=== PATIENT | male | born 1975 | race Caucasian/White ===

== ENCOUNTER 2017-02-09 09:55 | Observation (INO) | payer OTHER ==
[2017-02-08 12:15] LABS: ASPARTATE AMINO TRANSFERASE 16 U/L (15-37); BLOOD UREA NITROGEN 17 mg/dL (7-18)
[~2017-02-09] VITALS: Ht 165.1 cm; Wt 117.8 kg
[~2017-02-09 09:55] MED LIST: ASPI-496 PO; CARV12.52 PO; EPLE25TA4 PO; EZET10TA3 PO; LOSA50TA6 PO; ROSU40TA PO
[2017-02-09] MEDS ORDERED: LACTATED RINGERS 1,000 ML IV SCH (10:13)
[2017-02-09] MEDS ORDERED: MITOMYCIN 40 MG in STERILE WATER 20 ML IV ONE (13:30)
[2017-02-09] MEDS ORDERED: MIDAZOLAM 1 MG/ML, 2ML ONE (13:31)
[2017-02-09] MEDS ORDERED: FENTANYL PF 250 MCG/5ML ONE (13:33)
[2017-02-09] MEDS ORDERED: ONDANSETRON 2MG/ML, 2ML ONE (13:42)
[2017-02-09] MEDS ORDERED: PROPOFOL 10 MG/ML, 20ML ONE (13:42)
[2017-02-09] MEDS ORDERED: SUGAMMADEX 200 MG/2 ML IVPush ONE ×3 (13:42→14:19)
[2017-02-09] MEDS ORDERED: ROCURONIUM 10 MG/ML ONE (13:42)
[2017-02-09] MEDS ORDERED: MEPERIDINE/PF 25MG/0.5ML IVPush PRN (14:30)
[2017-02-09] MEDS ORDERED: ACETAMINOPHEN 325 MG TABLET PO PRN (14:30)
[2017-02-09] MEDS ORDERED: hydrALAzine 20 MG/ML, 1ML IV PRN (14:30)
[2017-02-09] MEDS ORDERED: METOPROLOL 1 MG/ML, 5ML IV PRN (14:30)
[2017-02-09] MEDS ORDERED: FENTANYL PF 100 MCG/2ML IV PRN (14:30)
[2017-02-09] MEDS ORDERED: ALBUTEROL/IPRATROPIUM 2.5MG/0.5MG, 3 ML NPPB PRN (14:30)
[2017-02-09] MEDS ORDERED: OXYcodone 5 MG/5 ML ORAL.SOL UDC PO PRN (14:30)
[2017-02-09] MEDS ORDERED: HYDROmorphone 1 MG/ML, 1ML IV PRN (14:30)
[2017-02-09] MEDS ORDERED: OXYcodone 5 MG/5 ML ORAL.SOL UDC ONE (15:13)
[2017-02-09] MEDS ORDERED: ACETAMINOPHEN 650 MG/20.3 ML UDC ONE (15:13)
[2017-02-09] MEDS ORDERED: FENTANYL PF 100 MCG/2ML ONE (15:46)
[2017-02-09 18:30] LABS: ASPARTATE AMINO TRANSFERASE 23 U/L (15-37); BLOOD UREA NITROGEN 15 mg/dL (7-18)
[2017-02-09 19:31] LABS: IS PT STATUS REG ER OR PRE ER? NO
[2017-02-09 20:33] VITALS: BP 114/66
[2017-02-09] MEDS: CARVEDILOL 12.5 MG TABLET PO SCH (23:00)
[2017-02-09] MEDS ORDERED: TEMAZEPAM 15 MG CAPSULE PO PRN (23:00)
[2017-02-09] MEDS: ENOXAPARIN 40 MG/0.4 ML SQ SCH (23:00)
[2017-02-09] MEDS: LOSARTAN 50MG TABLET PO SCH (23:00)
[2017-02-09 23:30] VITALS: BP 109/45
[2017-02-09] MEDS: ATORVASTATIN 80 MG TABLET PO SCH (23:34)
[2017-02-10 00:19] LABS: IS PT STATUS REG ER OR PRE ER? NO
[2017-02-10 04:00] VITALS: BP 129/72
[2017-02-10 05:52] LABS: BLOOD UREA NITROGEN 17 mg/dL (7-18)
[2017-02-10 06:05] LABS: IS PT STATUS REG ER OR PRE ER? NO
[2017-02-10 06:58] VITALS: BP 168/80
[2017-02-10] MEDS: CARVEDILOL 12.5 MG TABLET PO SCH ×2 (08:35→21:31)
[2017-02-10] MEDS: EZETIMIBE 10 MG TABLET PO SCH (08:35)
[2017-02-10] MEDS: LOSARTAN 50MG TABLET PO SCH ×2 (08:35→21:32)
[2017-02-10] MEDS: ASPIRIN 81 MG TABLET EC PO SCH (08:35)
[2017-02-10] MEDS: ENOXAPARIN 40 MG/0.4 ML SQ SCH (08:35)
[2017-02-10 12:57] VITALS: BP 119/66
[2017-02-10 19:06] VITALS: BP 148/71
[2017-02-10 21:29] VITALS: BP 131/68
[2017-02-10] MEDS: ATORVASTATIN 80 MG TABLET PO SCH (21:32)
[2017-02-11 04:00] VITALS: BP 111/62
[2017-02-11 05:49] LABS: IS PT STATUS REG ER OR PRE ER? NO
[2017-02-11 06:49] VITALS: BP 90/51
[2017-02-11] MEDS ORDERED: REGADENOSON 0.4 MG/5 ML SYRINGE ONE (08:35)
[2017-02-11] MEDS: ENOXAPARIN 40 MG/0.4 ML SQ SCH (08:59)
[2017-02-11] MEDS: LOSARTAN 50MG TABLET PO SCH ×2 (08:59→20:48)
[2017-02-11] MEDS: ASPIRIN 81 MG TABLET EC PO SCH (08:59)
[2017-02-11] MEDS: CARVEDILOL 12.5 MG TABLET PO SCH ×2 (09:00→20:48)
[2017-02-11] MEDS: EZETIMIBE 10 MG TABLET PO SCH (09:00)
[2017-02-11 13:13] VITALS: BP 142/79
[2017-02-11 19:09] VITALS: BP 146/83
[2017-02-11 20:45] VITALS: BP 130/70
[2017-02-11] MEDS: ATORVASTATIN 80 MG TABLET PO SCH (20:48)
[2017-02-12 01:30] VITALS: BP 120/68
[2017-02-12] MEDS: ENOXAPARIN 40 MG/0.4 ML SQ SCH (09:00)
[2017-02-12 09:09] VITALS: BP 134/55
[2017-02-12] MEDS: EZETIMIBE 10 MG TABLET PO SCH (09:34)
[2017-02-12] MEDS: CARVEDILOL 12.5 MG TABLET PO SCH (09:34)
[2017-02-12] MEDS: ASPIRIN 81 MG TABLET EC PO SCH (09:34)
[2017-02-12] MEDS: LOSARTAN 50MG TABLET PO SCH (09:35)
== END 2017-02-12 11:40 | disposition home or self-care (01) ==
LOC: OUT 09:55 → INTOOBSV 18:54 → ORIP 18:54 → 5SO 20:03
PROVIDERS: ADMIT Urology; ATTEND Family Medicine
DX: D30.3 Benign neoplasm of bladder (principal); D49.4 Neoplasm of unspecified behavior of bladder; E44.1 Mild protein-calorie malnutrition; E66.9 Obesity, unspecified; E78.5 Hyperlipidemia, unspecified; I21.4 Non-ST elevation (NSTEMI) myocardial infarction; I25.10 Atherosclerotic heart disease of native coronary artery without angina pectoris; I25.2 Old myocardial infarction; N30.30 Trigonitis without hematuria; Z68.41 Body mass index [BMI] 40.0-44.9, adult; Z80.1 Family history of malignant neoplasm of trachea, bronchus and lung; Z82.49 Family history of ischemic heart disease and other diseases of the circulatory system; Z83.3 Family history of diabetes mellitus; Z85.51 Personal history of malignant neoplasm of bladder; Z95.5 Presence of coronary angioplasty implant and graft; I51.7 Cardiomegaly
CPT/HCPCS: 36415; 52224; 78452; 80048; 80053; 80061; 83735; 84484; 85025; 85610; 85730; 88305; 93005; 93017; 93306; 96372; A9502; C9898; G0378; J1650; J2250; J2405; J2704; J2785; J3010